=== PATIENT | female | born 1950 | race Caucasian/White ===

== ENCOUNTER 2018-04-29 07:04 | Outpatient (CLI) | payer MEDICARE, OTHER ==
[2018-04-29 07:39] LABS: MEAN CORPUSCULAR HEMOGLOBIN 32.6 pg (28.0-34.0)
[2018-04-29 07:40] LABS: BASOPHILS % 0.3 (0.0-1.5); EOSINOPHILS % 2.9 % (0.0-6.8); MONOCYTES % 5.1 % (0.0-11.0); NEUTROPHILS # 2.5 # k/uL (1.4-7.7)
[2018-04-29 08:03] LABS: eGFR (Non-African) > 60
[2018-04-29 09:53] LABS: APPEARANCE,URINE CLEAR (CLEAR); COLOR,URINE YELLOW (YELLOW); OCCULT BLOOD,URINE NEGATIVE (NEGATIVE); UROBILINOGEN URINE 0.2 Eu (0.2-1.0)
== END 2018-04-29 07:06 ==
LOC: LAB 07:04
PROVIDERS: ATTEND Nurse Practitioner Family
DX: M25.562 Pain in left knee (principal); M54.5 Low back pain; E55.9 Vitamin D deficiency, unspecified; M85.80 Other specified disorders of bone density and structure, unspecified site; K21.9 Gastro-esophageal reflux disease without esophagitis
CPT/HCPCS: 36415; 80053; 81002; 82306; 85025

== ENCOUNTER 2018-09-07 10:18 | Outpatient (CLI) | payer MEDICARE, OTHER ==
--- NOTE | 2018-09-23 15:57 | Diagnostic Imaging Report ---
MARIA L ROSAS (BIB) - OP [facility] [id number] [id number] Report Submission Date: Sep 09, 2018 8:44:23 PM CDT Patient Study Name: YUE CHIRINOS Date: Sep 07, 2018 10:53:00 PM CDT Modality Type: DEXA\OT Gender: F Description: DEXA : 48 Institution: [facility] Physician: MARIA L ROSAS) - OP Examination: Bone density History: Assess bone mineralization Comparison exams: None available Technique: DEXA protocol Findings: Average bone mineral density from L1 through L4: 1.313 grams cm2. T score: 1.1 Average bone mineral density of the left femoral neck: 0.808 grams cm2. T score: -1.7 Average bone mineral density of the right femoral neck: 0.804 grams cm2. T score: -1.7 Impression: Normal lumbar spine mineralization. Bilateral hip osteopenia. Electronically signed on Sep 09, 2018 8:44:23 PM CDT by: Jeff BLANCO
== END 2018-09-07 10:20 ==
LOC: RAD 10:18
PROVIDERS: ATTEND Nurse Practitioner Family
DX: M85.80 Other specified disorders of bone density and structure, unspecified site (principal)
CPT/HCPCS: 77080